=== PATIENT | female | born 1995 | race Caucasian/White ===

== ENCOUNTER 2019-02-08 16:50 | Emergency (ER) | payer OTHER ==
[~2019-02-08] VITALS: Ht 160 cm; Wt 88.5 kg
[~2019-02-08 16:50] MED LIST: LIDEX 0.05% CRE15 GM T
[2019-02-08] MEDS ORDERED: AUGMENTIN 875-875 MG PO (17:16)
== END 2019-02-08 17:24 | disposition home or self-care (01) ==
LOC: ED 16:50
DX: H66.93 Otitis media, unspecified, bilateral (principal); N91.2 Amenorrhea, unspecified; J02.9 Acute pharyngitis, unspecified

== ENCOUNTER → 2020-08-02 | Outpatient (CLI) | payer BC, OTHER ==
[~2020-08-02] MED LIST changes: +AUGMENTIN 875-875 MG PO
== END | disposition home or self-care (01) ==
LOC: COVID19 08:20
PROVIDERS: ATTEND Internal Medicine
DX: Z20.822 Contact with and (suspected) exposure to COVID-19 (principal)

== ENCOUNTER → 2020-12-31 | Outpatient (CLI) | payer BC | END | disposition home or self-care (01) | LOC: US 09:00 | PROVIDERS: ATTEND Nurse Practitioner Women's Health | DX: Z34.01 Encounter for supervision of normal first pregnancy, first trimester (principal); Z3A.09 9 weeks gestation of pregnancy ==

== ENCOUNTER → 2021-03-03 | Outpatient (CLI) | payer BC | END | disposition home or self-care (01) | LOC: US 15:48 | PROVIDERS: ATTEND Nurse Practitioner Women's Health | DX: Z34.02 Encounter for supervision of normal first pregnancy, second trimester (principal); Z3A.18 18 weeks gestation of pregnancy ==

== ENCOUNTER → 2023-01-22 | Outpatient (CLI) | payer BC ==
[2023-01-22 12:54] LABS: BASO % 0.4 % (0.0-1.0); EOS % 0.2 % (1.0-4.0); HEMATOCRIT 46.1 % (37.0-47.0); LYMPH # 1.5 10*3/uL (1.3-4.4); MEAN CELL VOLUME 93.1 fl (81.0-99.0); MEAN CORPUSCULAR HGB 30.1 pg (27.0-31.0); MEAN CORPUSCULAR HGB CONC 32.3 g/dl (33.0-37.0); MEAN PLATELET VOLUME 9.6 fl (9.6-12.3); MONO # 0.4 10*3/uL (0.1-1.0); MONO % 4.8 % (3.0-9.0); NEUT # 6.1 10*3/uL (2.3-7.9); NEUT % 75.4 % (47.0-73.0); PLATELET COUNT AUTOMATED 300 10*3/uL (130-400); RED BLOOD COUNT 4.95 10*6/uL (4.10-5.10); RED CELL DISTRI WIDTH 12.8 % (0-14.5); WHITE BLOOD COUNT 8.1 10*3/uL (4.8-10.8)
[2023-01-22 13:24] LABS: ALKALINE PHOSPHATASE 45 U/L (46-116); BUN 8 mg/dl (9-23); CHLORIDE 108 mmol/L (98-107); POTASSIUM 4.1 mmol/L (3.4-5.1); SGPT/ALT 12 U/L (10-49); TOTAL PROTEIN 8.3 gm/dL (6.0-8.0)
== END | disposition home or self-care (01) ==
LOC: LAB 12:21
PROVIDERS: ATTEND Podiatrist Foot & Ankle Surgery
DX: M06.9 Rheumatoid arthritis, unspecified (principal); M79.7 Fibromyalgia; M32.9 Systemic lupus erythematosus, unspecified

== ENCOUNTER → 2023-02-23 | Outpatient (CLI) | payer BC | END | disposition home or self-care (01) | LOC: RAD 11:08 | PROVIDERS: ATTEND Podiatrist Foot & Ankle Surgery | DX: S92.215D Nondisplaced fracture of cuboid bone of left foot, subsequent encounter for fracture with routine healing (principal); X58.XXXD Exposure to other specified factors, subsequent encounter ==